=== PATIENT | male | born 1945 | race Caucasian/White ===

== ENCOUNTER 2024-08-20 19:05 | Emergency (ER) | payer MEDICARE ==
[2024-08-20] MEDS: Albuterol/Ipratropium 3.0-0.5 MG/3 ML Neb Soln NEB ONE (19:47)
[2024-08-20 19:55] LABS: BASOPHILS ABSOLUTE AUTO 0.03 K/uL (0.00-0.10); BASOPHILS PERCENT AUTO 0.4 % (0.1-1.3); EOSINOPHILS ABSOLUTE AUTO 0.16 K/uL (0.00-0.40); EOSINOPHILS PERCENT AUTO 2.2 % (0.0-5.4); HEMATOCRIT 36.4 % (38.4-49.7); HEMOGLOBIN 11.1 g/dL (12.9-16.9); IMMATURE GRAN ABSOLUTE AUTO 0.14 K/uL (0.00-0.23); IMMATURE GRAN PERCENT AUTO 1.9 % (0.0-0.7); LYMPHOCYTES ABSOLUTE AUTO 0.86 K/uL (0.8-3.3); LYMPHOCYTES PERCENT AUTO 11.8 % (11.4-47.7); MEAN CORPUSCULAR HEMOGLOBIN 26.4 pg (31.6-35.5); MEAN CORPUSCULAR HGB CONC 30.5 g/dL (31.6-35.5); MEAN CORPUSCULAR VOLUME 86.7 fL (81.4-99.0); MONOCYTES ABSOLUTE AUTO 0.34 K/uL (0.20-0.90); MONOCYTES PERCENT AUTO 4.7 % (3.3-12.6); NEUTROPHILS ABSOLUTE AUTO 5.73 K/uL (1.0-7.6); PLATELET COUNT,PLT 191 K/uL (130-375); WHITE BLOOD CELL COUNT,WBC 7.3 K/uL (3.2-11.0)
[2024-08-20 20:16] LABS: A/G RATIO 0.5 (1.2-2.2); ALANINE AMINOTRANSFERASE,ALT 37 U/L (12-78); ALBUMIN 2.3 g/dL (3.4-5.0); ALKALINE PHOSPHATASE 98 U/L (46-116); ANION GAP 13.4 mmol/L (5.0-14.0); ASPARTATE AMNIOTRANSFERASE,AST 22 U/L (15-37); BILIRUBIN TOTAL 0.7 mg/dL (0.2-1.0); BLOOD UREA NITROGEN,BUN 36 mg/dL (7-18); CALCIUM 9.3 mg/dL (8.5-10.1); CARBON DIOXIDE,CO2 31 mmol/L (21-32); CHLORIDE,CL 95 mmol/L (100-108); CREATININE 1.4 mg/dL (0.8-1.3); EST CRCL DRUG DOSING (CG) 41.38 mL/min; ESTIMATED GFR 50 mL/min (>60); GLUCOSE RANDOM 201 mg/dL (74-106); POTASSIUM,K 5.4 mmol/L (3.6-5.2); PROTEIN TOTAL,TP 6.8 g/dL (6.4-8.2); SODIUM,NA 134 mmol/L (140-148)
[2024-08-20] MEDS: Sodium Chloride 0.9% 500 ML IV SCH (20:41)
== END 2024-08-20 22:03 | disposition home or self-care (01) ==
LOC: JP.ED 19:05
DX: J45.20 Mild intermittent asthma, uncomplicated (principal); E86.1 Hypovolemia; E86.0 Dehydration; L03.317 Cellulitis of buttock; I11.0 Hypertensive heart disease with heart failure; I50.9 Heart failure, unspecified; J45.909 Unspecified asthma, uncomplicated; E11.9 Type 2 diabetes mellitus without complications; Z90.49 Acquired absence of other specified parts of digestive tract; Z87.891 Personal history of nicotine dependence; Z79.899 Other long term (current) drug therapy; Z79.84 Long term (current) use of oral hypoglycemic drugs; Z79.82 Long term (current) use of aspirin
CPT/HCPCS: 36415; 71046; 80053; 85025; 94640; 99285; A9270; J7030

== ENCOUNTER 2025-02-24 17:46 | Emergency (ER) | payer MEDICARE ==
[2025-02-24 18:23] LABS: APPEARANCE,URINE CLOUDY (CLEAR); GLUCOSE,URINE NEGATIVE (NEGATIVE); OCCULT BLOOD,URINE MODERATE (NEGATIVE)
[2025-02-24 18:24] LABS: SQUAMOUS EPITHELIAL CELLS,UR NOT SEEN /HPF; UROTHELIAL CELLS,URINE NOT SEEN /HPF
== END 2025-02-24 19:03 | disposition home or self-care (01) ==
LOC: JP.ED 17:46
DX: R31.0 Gross hematuria (principal); I11.0 Hypertensive heart disease with heart failure; I50.9 Heart failure, unspecified; E78.00 Pure hypercholesterolemia, unspecified; E11.9 Type 2 diabetes mellitus without complications; J45.909 Unspecified asthma, uncomplicated; Z95.5 Presence of coronary angioplasty implant and graft; Z87.891 Personal history of nicotine dependence; Z79.82 Long term (current) use of aspirin; Z79.01 Long term (current) use of anticoagulants; Z79.899 Other long term (current) drug therapy; Z79.84 Long term (current) use of oral hypoglycemic drugs
CPT/HCPCS: 81001; 99283